=== PATIENT | female | born 2000 | race Caucasian/White ===

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

== ENCOUNTER 2020-02-13 19:15 | Emergency (ER) | payer SELFPAY ==
[~2020-02-13 19:15] MED LIST: Lidocaine 1% w/Epinephrine 1:100K 20 ML VIAL ONE
[2020-02-13] MEDS ORDERED: Bacitracin 1 PK ONE (19:54)
== END 2020-02-13 20:00 | disposition home or self-care (01) ==
LOC: BURERS 19:15
DX: L02.412 Cutaneous abscess of left axilla (principal); L03.112 Cellulitis of left axilla; F17.210 Nicotine dependence, cigarettes, uncomplicated
CPT/HCPCS: 10060

== ENCOUNTER 2020-02-14 22:27 | Emergency (ER) | payer SELFPAY ==
[2020-02-14] MEDS ORDERED: HYDROcodone/Acetaminophen 5/325 mg Tablet ONE (22:39)
[2020-02-14] MEDS ORDERED: Adacel (T-DAP) 0.5 ML SYRINGE ONE (22:40)
== END 2020-02-14 22:46 | disposition home or self-care (01) ==
LOC: BURERS 22:27
DX: T23.132A Burn of first degree of multiple left fingers (nail), not including thumb, initial encounter (principal); T31.0 Burns involving less than 10% of body surface; F17.210 Nicotine dependence, cigarettes, uncomplicated; Z23 Encounter for immunization; X12.XXXA Contact with other hot fluids, initial encounter
CPT/HCPCS: 90471; 90715

== ENCOUNTER 2020-07-20 09:27 | Emergency (ER) | payer SELFPAY ==
[2020-07-20] MEDS ORDERED: traMADol HCl 50 MG TAB ONE (09:46)
== END 2020-07-20 09:49 | disposition home or self-care (01) ==
LOC: BURERS 09:27
DX: M26.602 Left temporomandibular joint disorder, unspecified (principal); F17.210 Nicotine dependence, cigarettes, uncomplicated
CPT/HCPCS: 99283

== ENCOUNTER 2020-11-10 06:51 | Emergency (ER) | payer SELFPAY | END 2020-11-10 07:23 | disposition home or self-care (01) | LOC: BURERS 06:51 | DX: H66.41 Suppurative otitis media, unspecified, right ear (principal); F17.210 Nicotine dependence, cigarettes, uncomplicated | CPT/HCPCS: 99406 ==

== ENCOUNTER 2025-03-06 19:21 | Emergency (ER) | payer SELFPAY ==
[2025-03-06] MEDS ORDERED: Bupivacaine 0.5% 10 ML VIAL ONE (19:49)
[2025-03-06] MEDS ORDERED: Penicillin V Potassium 250 MG TAB ONE (20:03)
== END 2025-03-06 20:03 | disposition home or self-care (01) ==
LOC: BURERS 19:21
DX: K04.7 Periapical abscess without sinus (principal); F17.210 Nicotine dependence, cigarettes, uncomplicated
CPT/HCPCS: 64400; J3490